=== PATIENT | male | born 1970 | race Caucasian/White ===

== ENCOUNTER 2021-06-12 01:41 | Emergency (ER) | payer MEDICARE, OTHER, SELFPAY ==
--- NOTE | ~2021-06-12 | XR_ITS ---
EXAMINATION: XR SHOULDER, RIGHT CLINICAL INFORMATION: Shoulder pain COMPARISON: None TECHNIQUE: Three views of the right shoulder. FINDINGS: No acute fracture or dislocation. Small marginal osteophytes along the inferior acromioclavicular joint. Glenohumeral and acromioclavicular alignment is anatomic. No abnormal soft tissue calcifications. XR/XR shoulder RT min 2V IMPRESSION: No acute fracture or dislocation.
[2021-06-12 01:51] VITALS: BP 115/109; PULSE 94; RESP 16; TEMP 36.2; O2SAT 100; BMI 30.5
--- NOTE | 2021-06-12 02:36 | ECG_ITS ---
Test Reason : chest pain Blood Pressure : / mmHG Vent. Rate : 108 BPM Atrial Rate : 000 BPM P-R Int : 000 ms QRS Dur : 088 ms QT Int : 304 ms P-R-T Axes : 000 059 041 degrees QTc Int : 407 ms Atrial fibrillation with rapid ventricular response Abnormal ECG Atrial fibrillation is new Referred By: Aurora Mcmahan Electronically Signed By:BHUPENDRA SHI MD
--- NOTE | 2021-06-12 02:44 | ED_ITS ---
HPI - Extremity Problem General Chief complaint: Extremity Injury, Upper Stated complaint: shoulder pain, heart palpitations Time Seen by Provider: 06/12/21 02:20 Source: patient Mode of arrival: ambulatory History of Present Illness HPI Narrative: 51-year-old male with recent diagnosis of atrial fibrillation currently on Eliquis reports 2 weeks of right shoulder pain that he experienced after being and on prior in a baseball game where he states that he flung his arm out and since that time has had significant discomfort on movement with mild tingling into the distal extremity and denies any associated fever, chills, shortness of breath but states he has had some palpitations and denies any recent travel. Related Data Allergies Allergy/AdvReac Type Severity Reaction Status Date / Time acetaminophen [From Tylenol] Allergy Hypertensio Verified 06/12/21 01:58 n Codeine Sulfate Allergy Unknown pruritus Uncoded 06/19/12 00:00 Review of Systems Review of Systems: Pertinent positives and negatives as stated in HPI 10 point review systems otherwise negative. [facility] Past Medical History Source: nursing notes reviewed Social History Social History Advance Directives: No Advance Directives Information Provided: Yes Physical Exam Vital Signs: Vital Signs: Last Vital Signs Temp 97.1 F 06/12/21 01:51 Pulse 91 06/12/21 03:45 Resp 16 06/12/21 03:45 BP 154/89 H 06/12/21 03:45 Pulse Ox 98 06/12/21 03:45 Body Mass Index 30.5 VITAL SIGNS: Reviewed. GENERAL: Well developed, well nourished, in no acute distress. HEAD: Normocephalic/atraumatic EYES: PERRLA, EOMI OROPHARYNX: no oral lesions noted, posterior pharynx clear NECK: Supple, no adenopathy LUNGS: Normal breath sounds. No adventitious sounds or accessory muscle use. SpO2<100> CARDIOVASCULAR: Regular rate and rhythm without noted murmurs, no JVD or lower extremity edema. ABDOMEN: Soft, non-tender, non-distended with bowel sounds. RIGHT SHOULDER: No deformities, bicipital groove tenderness, inability to flex anteriorly at the shoulder but able to ABduct, capillary refill less than 3 seconds, palpable radial and ulnar pulses, sensation is intact SKIN: Inspection of the skin reveals no rashes, mildly diaphoretic NEUROLOGIC: Alert and oriented x 4. Strength and sensation to light touch were grossly intact x 4. Course Course Course Narrative: This is a 51-year-old male with history and clinical presentation suggestive rotator cuff injury. Review of all investigations negative for acute joint/bone injury and patient was provided with combination analgesics as well as lidocaine patch and on reassessment has had good improvement of his pain. Was informed of all results and findings and understands that he will be provided with a referral to follow- up with orthopedics for further investigations. MDM - Extremity (Nontraumatic) Lab Data Labs: Lab Results 06/12/21 Range/Units 02:38 D-Dimer < 200 NG/ML ECG Data Attestation EKG: I personally reviewed and interpreted this ECG as follows: Prior ECG tracings: available for review (05/20/2012 new development of atrial fibrillation as documented in recent history.) Interpretation: Atrial fibrillation with RVR, HR-108, QRS/QTC are within normal limits. Discharge Plan Discharge Clinical Impression: Pain in right shoulder Patient Disposition: Home, Self-Care Instructions: Shoulder Pain (ED) Additional Instructions: 1. Resume all home medications as prescribed. 2. You have been provided with a referral to follow-up with the orthopedic surgery service. 3. Follow-up with your primary care provider in the next 1-2 days for re- evaluation further outpatient management. 4. Recommend lidocaine patch, this is available [id number] and can be apply to area of maximal tenderness as directed on the outside packaging. Return to the ER for acute worsening of symptoms. Referrals: Arsenio Hoyos MD [Primary Care Provider] - 2 days Evangelina Robertson MD [Physician] - 2 days (Suspect right shoulder rotator cuff injury. X-ray negative. Neurovascularly intact.)
[2021-06-12 03:05] LABS: D Dimer < 200 NG/ML
[2021-06-12] MEDS: Ketorolac Tromethamine 15 MG/ML VIAL IM (03:31)
[2021-06-12] MEDS: Lidocaine 4 % Patch ADH..PATCH 1 PATCH TRANSDERMA (03:31)
--- NOTE | 2021-06-12 03:34 | PC.NURSE ---
Pt medicated per OCT. Awaiting DC.
[2021-06-12 03:45] VITALS: BP 154/89; PULSE 91; RESP 16; O2SAT 98
== END 2021-06-12 05:03 | disposition home or self-care (01) ==
PROVIDERS: Emergency Provider Student in an Organized Health Care Education/Training Program; PCP Internal Medicine Cardiovascular Disease
DX: M25.511 Pain in right shoulder (principal); I48.91 Unspecified atrial fibrillation; Z79.01 Long term (current) use of anticoagulants; Z79.899 Other long term (current) drug therapy
CPT/HCPCS: 36415; 73030; 85379; 93005; 96372; 99284; J1885

== ENCOUNTER → 2021-07-10 09:17 | Outpatient (BNVA) | payer MEDICARE, OTHER, SELFPAY | PROVIDERS: PCP Nurse Practitioner Family; Visit Provider Physician Assistant | DX: S46.011A Strain of muscle(s) and tendon(s) of the rotator cuff of right shoulder, initial encounter (principal) | CPT/HCPCS: 99202 ==

== ENCOUNTER 2021-09-05 05:56 | Emergency (ER) | payer MEDICARE, OTHER, SELFPAY ==
[2021-09-05 06:12] VITALS: BP 153/93; PULSE 110; RESP 20; TEMP 36.2; O2SAT 98; BMI 28.7
--- NOTE | 2021-09-05 07:03 | PC.NURSE ---
provider in to assess pt. positive Cms to left thumb. Wound clean and dressed, awaiting provider to suture.
[2021-09-05] MEDS: Ibuprofen 600 MG TABLET PO (07:35)
--- NOTE | 2021-09-05 08:09 | ED_ITS ---
HPI - Wound/Laceration General Chief Complaint: Upper Respiratory Symptoms Stated Complaint: Finger Lac Time Seen by Provider: 09/05/21 08:05 Source: patient Mode of arrival: ambulatory Limitations: no limitations History of Present Illness HPI narrative: 51-year-old male presents to the emergency department with a laceration on his left dorsal aspect of the thumb, he cut his thumb this morning with a knife, he tells me was cutting cabbage and accidentally cut himself with a sharp knife. He tells me he is up-to-date on tetanus shot. He is on Eliquis, he reports bleeding. A little bit of pain. He has no other complaints at this time. Patient is left-hand dominant. Onset (ago): hour(s) (1) Location: other ([facility] Place: home Patient tetanus UTD: Yes Context: accidental Associated symptoms: none Treatments prior to arrival: bandage Related Data Previous Rx's Medication Instructions Recorded cephalexin 500 mg tablet 500 mg PO Q6H 10 Days #40 tab 09/05/21 doxycycline hyclate 100 mg capsule 100 mg PO BID 10 Days #20 cap 09/05/21 Allergies Allergy/AdvReac Type Severity Reaction Status Date / Time acetaminophen [From Tylenol] Allergy Hypertensio Verified 07/10/21 09:56 n Codeine Sulfate Allergy Unknown pruritus Uncoded 06/19/12 00:00 Review of Systems Review of Systems: Constitutional : No Fever, No Chills, Cardiovascular : No Chest Pain, No SOB Respiratory : No Dyspnea Gastrointestinal : No abdominal pain Musculoskeletal : No Joint Swelling Skin : No rash, positive skin laceration Neuro : No Weakness, No Numbness Psych : No SI/HI Yes all other systems are reviewed and are negative FOR[facility]LY [facility], [facility] Past Medical History Attestation statement: The following information was validated with the patient. Source: old records reviewed and nursing notes reviewed Social History Social History Advance Directives: No Physical Exam Vital Signs: Vital Signs: Last Vital Signs Temp 97.2 F 09/05/21 06:12 Pulse 110 H 09/05/21 06:12 Resp 20 09/05/21 06:12 BP 153/93 H 09/05/21 06:12 Pulse Ox 98 09/05/21 06:12 BMI result Body Mass Index 28.7 VS significant for tachycardia and HTN Appearance: Alert.? Oriented X3.? No acute distress.? Head: Normocephalic, atraumatic, no step-offs or deformities Neck: Normal inspection.? Neck supple.? CVS: Normal heart rate and rhythm.? Pulses normal.? Respiratory: No respiratory distress.? Breath sounds normal.? Abdomen: Soft and nontender.? Skin: Skin warm and dry.? Normal skin color.? Normal skin turgor. +laceration to l. thumb 4 cm linear(image attached)?Full strength to left thum and all digits bilaterally. Cap refil intact. No evident ligament or tendon involvmnt. Extremities: No lower extremity edema.? No calf ttp. 5/5 strength to bilateral upper and lower extremities Neuro: Oriented X 3.? No motor deficit.? No sensory deficit. Course Reevaluation(s) Reevaluation #1: Laceration was successfully sutured. Patient tolerated procedure well. A sterile dressing was applied afterwards. I have given patient strict return precautions, have outlined them on his discharge. I will also send patient home with 2 antibiotics Keflex and doxycycline. Time: 09:05 MDM - Wound/Laceration MDM Narrative Medical decision making narrative: [id number] YO M presents to ED w/ complaints of laceration to left thumb, accidental PE laceration to left thumb as seen on images in PE Plan, suture using 2% lido. Medical Records Attestation: I reviewed the patient's medical records. Lab Data Attestation: I reviewed the patient's lab results. Procedures Laceration Laceration 1: Site: other (left thumb) Side (If applicable): left Size (cm): 4 Description: linear Depth: simple, single layer Local Anesthetic: lidocaine 2% Amount of anesthesia used (mL): 4 Pre-repair: wound explored, irrigated extensively and deep structures intact Skin layer closed with: vicryl Size (cm): 5-0 Number of sutures: 7 Technique: simple, interrupted Critical Care Time Critical Care Time Critical Care Time: No Discharge Plan Discharge Clinical Impression: Laceration of finger of left hand Patient Disposition: Home, Self-Care Instructions: Care For Your Stitches (ED), Laceration (ED), Stitches Removal (ED) Additional Instructions: Take your medications as prescribed. If you were prescribed antibiotics today, it is important that you take your medication to their entirety, do not skip any doses, do not finish them early. Return in 7-10 days for suture removal Follow-up with your primary care provider this week. Return to the emergency department with new or worsening symptoms. Numbness, tingling, severe pain, swelling or discharge from the laceration/fingerr. Fevers or chills. In case of emergency call 911 Prescriptions: New doxycycline hyclate 100 mg capsule 100 mg PO BID 10 Days Qty: 20 RF: 0 cephalexin 500 mg tablet 500 mg PO Q6H 10 Days Qty: 40 RF: 0 Referrals: Physician,Unknown J [Primary Care Provider] - 2 days Stand Alone Forms: Work/School Release
[2021-09-05] MEDS: Lidocaine HCl 2 % MPF 5 ML VIAL SUBCUT (09:09)
== END 2021-09-05 09:23 | disposition home or self-care (01) ==
PROVIDERS: Emergency Provider Internal Medicine
DX: S61.012A Laceration without foreign body of left thumb without damage to nail, initial encounter (principal); W26.0XXA Contact with knife, initial encounter; Y93.G1 Activity, food preparation and clean up; Y92.010 Kitchen of single-family (private) house as the place of occurrence of the external cause; Y99.9 Unspecified external cause status
CPT/HCPCS: 12002; 90471; 99284